=== PATIENT | female | born 1980 | race African-American/Black ===

== ENCOUNTER 2017-11-03 13:54 | Emergency (ER) | payer BC ==
[~2017-11-03] VITALS: Ht 170.2 cm; Wt 55.3 kg
--- NOTE | 2017-11-03 13:55 | NUR ---
C/O NON RADIATING MIDSTERNAL CP X 1 MONTH. NAD NOTED. PT AAO X4, AMB WITH STEADY GAIT. RR EVEN AND UNLABORED. PENDING MD FOR EVAL. PT PLACED ON MONITOR AND GOWN.
--- NOTE | 2017-11-03 14:37 | NUR ---
PT PROVIDED URINE AT THIS TIME
--- NOTE | 2017-11-03 14:39 | NUR ---
LAB AT BEDSIDE FOR DRAW
[2017-11-03 14:55] LABS: BASOPHILS % (AUTO) 0.9 % (0.0-2.0); EOSINOPHILS # (AUTO) 0.2 /CMM (0.0-0.7); EOSINOPHILS % (AUTO) 4.8 % (0.0-6.0); HEMATOCRIT 37 % (33-45); HEMOGLOBIN 11.7 g/dL (11.5-14.8); LYMPHOCYTES # (AUTO) 1.4 /CMM (0.8-4.8); LYMPHOCYTES % (AUTO) 36.4 % (20.0-44.0); MEAN CORPUSCULAR HEMOGLOBIN 26 PG (26.0-33.0); MEAN CORPUSCULAR HGB CONC 32 g/dl (31.0-36.0); MEAN CORPUSCULAR VOLUME 80 fL (82-100); MONOCYTES # (AUTO) 0.4 /CMM (0.1-1.30); MONOCYTES % (AUTO) 11.4 % (2.0-12.0); NEUTROPHILS # (AUTO) 1.8 /CMM (1.8-8.9); NEUTROPHILS % (AUTO) 46.5 % (43.0-81.0); PLATELET COUNT (AUTO) 274 /CMM (150-450); RDW COEFFICIENT OF VARIATION 16.8 (11.5-15.0); RED BLOOD CELL COUNT(AUTO) 4.57 MIL/uL (4.0-5.2); WHITE BLOOD COUNT (AUTO) 3.8 K/uL (4.3-11.0)
[2017-11-03 15:05] LABS: CALCIUM, SERUM 8.8 mg/dL (8.5-10.1); CREATININE 0.7 mg/dL (0.6-1.3); POTASSIUM 4.3 mmol/L (3.5-5.1)
[2017-11-03 15:24] LABS: THYROID STIMULATING HORMONE 1.068 uIU/mL (0.358-3.74)
[2017-11-03 15:41] VITALS: BP 106/69
== END 2017-11-03 15:46 | disposition home or self-care (01) ==
LOC: ER 13:59
DX: R00.2 Palpitations (principal); Z88.2 Allergy status to sulfonamides
CPT/HCPCS: 36415; 71010; 80048; 84439; 84443; 84703; 85025; 93005; 99285; A4606; Z7610

== ENCOUNTER 2022-07-09 13:18 | Emergency (ER) | payer BC, OTHER ==
[~2022-07-09] VITALS: Ht 170.2 cm; Wt 55.3 kg
--- NOTE | 2022-07-09 13:18 | NUR ---
BIB C/O COUGH, GENERALIZED WEAKNESS, NAUSEA, AND BACK PAIN X3DAYS
[2022-07-09 16:02] LABS: BILIRUBIN,URINE NEGATIVE (NEGATIVE); COLOR,URINE YELLOW (YELLOW); LEUKOCYTE ESTERASE ,URINE NEGATIVE (NEGATIVE); NITRITE, URINE NEGATIVE (NEGATIVE); PROTEIN,URINE NEGATIVE (NEGATIVE); UGLUCOSE NEGATIVE (NEGATIVE); UROBILINOGEN,URINE 0.2 EU/dL (0.2)
[2022-07-09 16:05] LABS: BACTERIA,URINE Rare /HPF (None Seen); MUCUS,URINE Few /LPF (None Seen); RBC,URINE 0-2 /HPF (0-2); SQUAMOUS EPITHELIAL CELL,UR Few /HPF (None Seen)
[2022-07-09] MEDS ORDERED: IBUPROFEN 600 MG TABLET ONE (16:12)
[2022-07-09] MEDS ORDERED: IBUP-1955 PO (16:14)
--- NOTE | 2022-07-09 16:23 | NUR ---
COVID+ DR. PARHAM MADE AWARE. PRIMARY RN MADE AWARE.
--- NOTE | 2022-07-09 16:28 | NUR ---
Patient discharged to home in stable condition. Written and verbal after care instructions given. Patient verbalizes understanding of instruction.
[2022-07-09] MEDS ORDERED: IBUPROFEN 600 MG TABLET PO ONE (16:30)
[2022-07-09 16:33] VITALS: BP 112/62
--- NOTE | 2022-07-10 11:50 | NUR ---
PT IS POSTIVE FOR AIDEN
== END 2022-07-09 16:34 | disposition home or self-care (01) ==
LOC: ER 13:31
DX: U07.1 COVID-19 (principal); R51.9 Headache, unspecified; M79.10 Myalgia, unspecified site; Z88.2 Allergy status to sulfonamides
CPT/HCPCS: 99284; 71045; 87426; 87086; 84703; 81001; U0003; C9803 ×2